=== PATIENT | female | born 1965 | race Caucasian/White ===

== ENCOUNTER 2018-07-31 09:42 | Day surgery (SDC) | payer OTHER ==
--- NOTE | 2018-07-31 06:57 | EKG ---
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
[2018-07-31] MEDS ORDERED: PROPOFOL 200 MG/20 ML VIAL IV ONE (09:50)
[2018-07-31] MEDS ORDERED: LIDOCAINE 1% MPF 2 ML AMPULE ONE (09:51)
[2018-07-31] MEDS ORDERED: FENTANYL CITR 100 MCG/2 ML ONE (09:51)
[2018-07-31] MEDS ORDERED: MIDAZOLAM HCL 2 MG/2 ML INJ ONE (09:51)
[2018-07-31] MEDS ORDERED: Ringers Lactate 1,000 ML IV ONE (10:05)
[2018-07-31] MEDS ORDERED: LIDOCAINE 1% W/EPI 1:100,000 MDV 50 ML VIAL ONE (10:24)
[2018-07-31] MEDS: MEPERIDINE HCL 50 MG/ML AMP ONE ×2 (11:58→12:03)
--- NOTE | 2018-08-01 07:24 | P.BOP ---
Preoperative diagnosis: BCC L check Postoperative diagnosis: same Primary procedure: excision malignant skin lesion, 1.5cm Secondary procedure: shave biopsy R medial cheek Other procedure(s): excisional biopsy R lateral cheek with primary closure Estimated blood loss: <10ml Specimen: L cheek, suture 12 oclock, R medial and lateral cheek Findings: L cheek scar, R medial SK, R lateral defer to permanent Anesthesia: General Complications: None Implants: none Fluids & blood products: see anath. record Transferred to: Recovery Room Condition: Good
--- NOTE | 2018-08-01 23:28 | OP ---
Date of Procedure: 07/31/2018 Surgeon: Allie Campos MD Preoperative Diagnoses: Basal cell carcinoma, left cheek, and lesions of the right cheek of uncertain behavior. Postoperative Diagnoses: Left cheek scar tissue and right medial cheek seborrheic keratosis. Right lateral cheek deferred to permanent. Procedures: Excision of malignant skin lesion of the cheek, maximal diameter 1.5 cm. Shave biopsy, right medial cheek. Excisional biopsy, right lateral cheek with primary closure. Indication For Procedure: Ms. Magda Medley presented to the clinic with concerns for a lesion on the left cheek, which was increasing in size. Clinically, its appearance was consistent with seborrheic keratosis and a shave biopsy was performed under local anesthetic in the clinic. The procedure overall was moderately tolerated due to patient's mental status. The pathology demonstrated seborrheic keratosis with nests of basal cell carcinoma and the options were discussed with the patient and her foster mother. The patient deferred re-excision in the clinic due to concerns for pain and discomfort. Description Of Procedure: The patient was brought to the operating room. She was placed under general anesthesia via LMA. The face was prepped with Betadine and draped in the standard sterile fashion. The areas of concern were injected with 1% lidocaine with epinephrine. The previous biopsy site of the left cheek was noted and a fusiform excision was performed with a 2 mm margin around the prior biopsy site. The full-thickness skin was elevated sharply using a scalpel. A suture was placed at 12 o'clock for orientation and the specimen was sent to Pathology for frozen section analysis. Small vessel in the superior aspect of the wound bed was noted, ligated and tied with silk suture. The Bovie electrocautery was then used to elevate tissue on the nasal aspect of the wound, advancing that skin over the defect and closed in a layered fashion using 4-0 Vicryl and 5-0 plain gut sutures. The total defect was 1.5 x 1 cm. Attention was turned then to the right cheek. A small lesion on the medial aspect of the cheek clinically was suspicious for seborrheic keratosis, but given the unusual findings of prior biopsy, a shave biopsy was performed of this lesion and sent to Pathology for frozen section without specific orientation. Finally, the lesion on the right lateral cheek was examined. It also was most suspicious for seborrheic keratosis. However, there was an isolated area of rather dark pigmentation of approximately 2 mm to 3 mm. Therefore, decision was made to perform an excisional biopsy to allow for best examination including depth of invasion if applicable. A fusiform excision was designed around the lesion and was sent to Pathology for evaluation without specific orientation. The pigmented aspect was noted to be on the inferior aspect of the lesion. After excision, the bleeding from the skin edges was controlled with Bovie electrocautery. The edges were gently undermined with Bovie electrocautery and the site was closed with 2 interrupted 5-0 plain gut sutures. I went to Pathology to review the slides with the pathologist. The left cheek lesion demonstrated scar and healing from prior biopsy with no residual carcinoma. The right medial cheek was consistent with seborrheic keratosis with no abnormality or dysplasia noted on frozen section. The right lateral lesion due to pigmentation was deferred to permanent section only without frozen section and final diagnosis is pending. The face was cleaned and dried and triple antibiotic ointment applied to the wounds. The patient was returned to care of Anesthesia for awakening, extubation in the operating room, which proceeded without difficulty, and the patient was transported to the recovery room in stable condition. ARIANA Voice ID: [id number] Report ID: [id number] LISSETH
== END 2018-07-31 13:00 | disposition home or self-care (01) ==
LOC: OR 09:42
PROVIDERS: ATTEND Otolaryngology
PROC: 0HB1XZZ Excision of Face Skin, External Approach (ICD-10-PCS; 2018-07-31)
PROC: 0HB1XZZ Excision of Face Skin, External Approach (ICD-10-PCS; principal; 2018-07-31 11:00)
DX: L82.1 Other seborrheic keratosis (principal); L90.5 Scar conditions and fibrosis of skin; E78.00 Pure hypercholesterolemia, unspecified; F79 Unspecified intellectual disabilities; Z82.49 Family history of ischemic heart disease and other diseases of the circulatory system
CPT/HCPCS: 11442 ×2; 88305; 88331 ×2; 88332; 93005; J2001; J2175; J2250; J3010

== ENCOUNTER 2020-01-21 07:01 | Day surgery (SDC) | payer OTHER ==
--- NOTE | 2020-01-18 12:12 | EKG ---
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
--- OUTSIDE RECORDS SUMMARY | 2020-01-21 07:04 | XMS REPORT | Summary of Care ---
:1965 Author Organization [facility] Address [address] [place] [address] Care Team Providers Name Role Phone Pietro Wiley MD Primary Care Provider Reason for Referral Radiology Services (Routine) Status Reason Specialty Diagnoses / Referred By Referred To Procedures Contact Contact Closed Diagnostic Diagnoses Encounter for screening mammogram for breast cancer Estefani Irizarry MD Radiology Procedures BI SCREENING MAMMOGRAM BILATERAL [address] [place] [address] [address] [place] [address] Radiology Services (Routine) Status Reason Specialty Diagnoses / Referred By Referred To Procedures Contact Contact Closed Diagnostic Diagnoses Encounter for screening mammogram for breast cancer Estefani Irizarry MD Radiology Procedures BI SCREENING MAMMOGRAM BILATERAL [address] [place] [address] [address] [place] [address] Reason for Visit Radiology Services (Routine) Status Reason Specialty Diagnoses / Referred By Referred To Procedures Contact Contact Closed Diagnostic Diagnoses Encounter for screening mammogram for breast cancer Estefani Irizarry MD Radiology Procedures BI SCREENING MAMMOGRAM BILATERAL [address] [place] [address] [address] [place] [address] Encounter Details Date Type Department Care Team Description 06/28/2019 Hospital Encounter Psych[facility] hospital Estefani Irizarry MD Arrived [facility] [address] [place] [address] [place] [address] [facility] [address] [place], [place] [id number] Allergies No Known Allergiesdocumented as of this encounter (statuses as of 06/29/2019) Medications Medication Sig Dispensed Refills Start Date End Date Status pravastatin (PRAVACHOL) Take 40 mg by 0 Active 40 mg tablet mouth at bedtime. omega-3 fatty Take 1 g by mouth 0 Active acids-vitamin E (FISH daily. OIL) 1,000 mg capsule busPIRone (BUSPAR) 10 Take 10 mg by 0 Active mg tablet mouth at bedtime. ibuprofen 400 mg tablet Take 1 tablet by 21 tablet 0 01/23/2017 Active mouth 3 (three) times daily with meals. Hospital, Clinic, or Other Ordered Dose Route Frequency Start Date End Date Status Facility Administered Medication medroxyPROGESTERone 150 mg IM [id number] 12/31/2018 12/02/2019 Active (DEPO-PROVERA) injection 150 mg documented as of this encounter (statuses as of 06/29/2019) Active Problems Problem Noted Date Well woman exam with routine gynecological exam 09/05/2016 Screening for colon cancer 09/05/2016 Encounter for screening mammogram for breast cancer 09/05/2016 On Depo-Provera for contraception 09/05/2016 Obesity (BMI 30.0-34.9) 09/05/2016 documented as of this encounter (statuses as of 06/29/2019) Social History Tobacco Use Types Packs/Day Years Used Date Never Smoker Smokeless Tobacco: Never Used Alcohol Use Drinks/Week oz/Week Comments No 0 Standard drinks or equivalent 0.0 Sex Assigned at Date Recorded Not on file Job Start Date Occupation Industry Not on file Not on file Not on file Travel History Travel Start Travel End No recent travel history available. documented as of this encounter Last Filed Vital Signs Not on filedocumented in this encounter Plan of Treatment Date Type Specialty Care Team Description 07/06/2019 Nurse Visit Obstetrics & Gynecology Nurse, [facility] 01/31/2020 Office Visit Obstetrics & Gynecology Estefani Irizarry MD [address] [place] [address] [address] [place], [place] [id number] Health Maintenance Due Date Last Done Comments DTaP,Tdap,and Td Vaccines (1 1985 - Tdap) PAP SMEAR 1987 COLONOSCOPY 2016 Zoster Recombinant Vaccine 2016 (SHINGRIX) (1 of 2) MAMMOGRAM 06/02/2019 06/02/2018, 04/15/2017, 04/02/2016 INFLUENZA VACCINE (#1) 2019 PNEUMOCOCCAL 0-64 YEARS Aged Out No longer eligible based COMBINED SERIES on patient's age to complete this topic documented as of this encounter Procedures Procedure Name Priority Date/Time Associated Diagnosis Comments BI SCREENING Routine 06/28/2019 8:40 AM Encounter for Results for this MAMMOGRAM BILATERAL CDT screening mammogram procedure are in for breast cancer the results section. documented in this encounter Results BI SCREENING MAMMOGRAM BILATERAL (06/28/2019 8:40 AM CDT) Specimen Narrative Performed At Examination: PACS BI SCREENING MAMMOGRAM BILATERAL History: Patient is 54 year old and is seen for:Screening. Hormone history includes other. No relevant surgical history has been documented for this patient. No relevant medical history has been documented for this patient. Computer-aided detection (CAD) utilized. Comparisons: 06/02/2018 BI SCREENING MAMMOGRAM BILATERAL, 04/15/2017 SCREENING DIGITAL BREAST OREN, and 04/02/2016 DIGITAL MAMMOGRAM, SCREENING Findings: The breasts are almost entirely fatty. There is no evidence of suspicious masses, calcifications, or other abnormal findings. Impression: No mammographic evidence of malignancy. Recommendation: Annual mammographic follow-up BI-RADS Category: Both 1 - Negative Performing Organization Address City/State/Zipcode Phone Number PACS documented in this encounter Visit Diagnoses Diagnosis Encounter for screening mammogram for breast cancer documented in this encounter Insurance Payer Benefit Plan / Subscriber ID Effective Dates Phone Address Type Group MEDICARE MEDICARE PART xxxxxxxxxxx 2008-Presen [phone] Medicare [address] & [address] t 2 [id number] [place] [address] [facility] MEDICAID OF xxxxxxxxx 2011-Presen [phone] [address] [place] t 0 [id number] [place] [address] documented as of this encounter
--- OUTSIDE RECORDS SUMMARY | 2020-01-21 07:04 | XMS REPORT | Summary of Care ---
:1965 Author Organization [facility] Address [address] [place] [address] Care Team Providers Name Role Phone Pietro Wiley MD Primary Care Provider Encounter Details Date Type Department Care Team Description 06/28/2019 Orders Only [facility] Doctor Unassigned, No [address] [facility] [place] [address] [address] [place] [id number] Allergies No Known Allergiesdocumented as of this encounter (statuses as of 06/28/2019) Medications Medication Sig Dispensed Refills Start Date [...] Facility Administered Medication medroxyPROGESTERone 150 mg IM [id number] 12/31/2018 12/02/2019 Active (DEPO-PROVERA) injection 150 mg documented as of this encounter (statuses as of 06/28/2019) Active Problems Problem Noted Date Well woman exam with routine gynecological exam 09/05/2016 Screening for colon cancer 09/05/2016 Encounter for screening mammogram for breast cancer 09/05/2016 On Depo-Provera for contraception 09/05/2016 Obesity (BMI 30.0-34.9) 09/05/2016 documented as of this encounter (statuses as of 06/28/2019) Social History Tobacco Use Types Packs/Day Years [...] Treatment Date Type Specialty Care Team Description 06/28/2019 Appointment Radiology Estefani Irizarry MD [address] [place] [address] [address] [place] [address] [phone] 07/06/2019 Nurse Visit Obstetrics & Gynecology Nurse, [facility] 01/31/2020 Office Visit Obstetrics & Gynecology Estefani Irizarry MD [address] [place] [address] [address] [place] [address] [phone] Health Maintenance Due Date Last Done Comments DTaP,Tdap,and Td Vaccines (1 1985 - Tdap) PAP SMEAR 1987 COLONOSCOPY 2016 Zoster Recombinant Vaccine 2016 (SHINGRIX) (1 of 2) MAMMOGRAM 06/02/2019 06/02/2018, 04/15/2017, 04/02/2016 INFLUENZA VACCINE (Retired 07/11/2019 version) PNEUMOCOCCAL 0-64 YEARS Aged Out No longer eligible based COMBINED SERIES on patient's age to complete this topic documented as of this encounter Procedures Procedure Name Priority Date/Time Associated Diagnosis Comments ASSIGNMENT OF BENEFITS Routine 06/28/2019 8:08 AM CDT documented in this encounter Results Not on filedocumented in this encounter Insurance Payer Benefit Plan / Subscriber ID Effective Dates Phone Address Type Group MEDICARE MEDICARE PART xxxxxxxxxxx 2008-Presmichelle [phone] [address] Medicare A & B t 2 [id number] [place] [id number] [facility] MEDICAID OF xxxxxxxxx 2011-Presmichelle [phone] [address] Medicaid [place] t 0 [id number] [place] [address] documented as of this encounter
--- OUTSIDE RECORDS SUMMARY | 2020-01-21 07:04 | XMS REPORT ---
:1965 Author [facility] Address [address] [place] [address] Dr. Cook [address] [place] [address] Care Team Providers Name Role Phone Unavailable Unavailable Unavailable Problems This patient has no known problems. Allergies, Adverse Reactions, Alerts This patient has no known allergies or adverse reactions. Medications This patient has no known medications.
--- OUTSIDE RECORDS SUMMARY | 2020-01-21 07:05 | XMS REPORT | Summary of Care ---
:1965 Author Organization [facility] Address [address] [place] [address] Care Team Providers Name Role Phone Pietro Wiley MD Primary Care Provider Encounter Details Date Type Department Care Team Description 07/06/2019 Orders Only [facility] Doctor Unassigned, No 301 [facility] [place] [address] [place] [address] Allergies No Known Allergiesdocumented as of this encounter (statuses as of 07/10/2019) Medications Medication Sig Dispensed Refills Start Date [...] Facility Administered Medication medroxyPROGESTERone 150 mg IM [id number] 12/31/2018 12/02/2019 Active (DEPO-PROVERA) injection 150 mg documented as of this encounter (statuses as of 07/10/2019) Active Problems Problem Noted Date Well woman exam with routine gynecological exam 09/05/2016 Screening for colon cancer 09/05/2016 Encounter for screening mammogram for breast cancer 09/05/2016 On Depo-Provera for contraception 09/05/2016 Obesity (BMI 30.0-34.9) 09/05/2016 documented as of this encounter (statuses as of 07/10/2019) Social History Tobacco Use Types Packs/Day Years [...] Treatment Date Type Specialty Care Team Description 10/04/2019 Nurse Visit Obstetrics & Gynecology Nurse, [facility] 01/31/2020 Office Visit Obstetrics & Gynecology Estefani Irizarry MD [address] [place] [address] [place] [address] [phone] Health Maintenance Due Date Last Done Comments DTaP,Tdap,and Td Vaccines 1985 (1 - Tdap) PAP SMEAR 1987 COLONOSCOPY 2016 Zoster Recombinant Vaccine 2016 (SHINGRIX) (1 of 2) INFLUENZA VACCINE (#1) 2019 MAMMOGRAM 06/28/2020 06/28/2019, 06/02/2018, 04/15/2017, Additional history exists PNEUMOCOCCAL 0-64 YEARS Aged Out No longer eligible COMBINED SERIES based on patient's age to complete this topic documented as of this encounter Procedures Procedure Name Priority Date/Time Associated Diagnosis Comments CONSENT FOR Routine 07/06/2019 12:01 AM CDT DEPO-PROVERA documented in this encounter Results Not on filedocumented in this encounter Insurance Payer Benefit Plan / Subscriber ID Effective Dates Phone Address Type Group MEDICARE MEDICARE PART xxxxxxxxxxx 2008-Presen [phone] [address] Medicare A & B t 2 [id number] [place] [id number] [facility] MEDICAID OF xxxxxxxxx 2011-Presmichelle [phone] [address] Medicaid [place] t 0 [id number] [place] [address] documented as of this encounter
--- OUTSIDE RECORDS SUMMARY | 2020-01-21 07:05 | XMS REPORT | Summary of Care ---
:1965 Author Organization [facility] Address [address] [place] [id number] Care Team Providers Name Role Phone Pietro Wiley MD Primary Care Provider Reason for Visit Reason Comments INJECTION depo provera Encounter Details Date Type Department Care Team Description 01/04/2020 Nurse Visit [facility] Women's IrizarryEstefani MD [address] [place] [address] DRZ[address] [place] [address] Encounter for Healthcare- [place] Nurse, [facility] Depo-Provera [address] [place] [address], contraception (Primary [address] Dx) [place] [address] Allergies No Known Allergiesdocumented as of this encounter (statuses as of 01/04/2020) Medications Medication Sig Dispensed Refills Start Date [...] Facility Administered Medication medroxyPROGESTERone 150 mg IM ONCE 01/04/2020 01/04/2020 Ended (DEPO-PROVERA) injection 150 mg documented as of this encounter (statuses as of 01/04/2020) Active Problems Problem Noted Date Well woman exam with routine gynecological exam 09/05/2016 Screening for colon cancer 09/05/2016 Encounter for screening mammogram for breast cancer 09/05/2016 On Depo-Provera for contraception 09/05/2016 Obesity (BMI 30.0-34.9) 09/05/2016 documented as of this encounter (statuses as of 01/04/2020) Social History Tobacco Use Types Packs/Day Years [...] of this encounter Last Filed Vital Signs Vital Sign Reading Time Taken Comments Blood Pressure 129/82 01/04/2020 10:18 AM STILL CLEANER TUBE Pulse 68 01/04/2020 10:18 AM STILL CLEANER TUBE Temperature 36.8 C (98.3 F) 01/04/2020 10:18 AM STILL CLEANER TUBE Respiratory Rate 20 01/04/2020 10:18 AM STILL CLEANER TUBE Oxygen Saturation - - Inhaled Oxygen Concentration - - Weight 85.7 kg (189 lb) 01/04/2020 10:18 AM STILL CLEANER TUBE Height 167.6 cm (5' 6") 01/04/2020 10:18 AM STILL CLEANER TUBE Body Mass Index 30.51 01/04/2020 10:18 AM STILL CLEANER TUBE documented in this encounter Patient Instructions Patient InstructionsXimena Mcdonough RN - 01/04/2020 10:00 AM STILL CLEANER TUBE Medroxyprogesterone injection [Contraceptive] Brand Names: Depo-Provera, Depo-subQ Provera 104 What is this medicine? MEDROXYPROGESTERONE (me DROX ee proe SERA te tamara) contraceptive injections prevent . They provide effective control for 3 months. Depo-subQ Provera 104 is also used for treating pain related to endometriosis. How should I use this medicine? Depo-Provera Contraceptive injection is given into a muscle. Depo-subQ Provera 104 injection is given under the skin. These injections are given by a health manager medicare. You must not be before getting an injection. The injection is usually given during the first 5 days after the start of a menstrual period or 6 weeks after delivery of a baby. Talk to your sample grader regarding the use of this medicine in children. Special care may be needed. These injections have been used in female children who have started having menstrual periods. What side effects may I notice from receiving this medicine? Side effects that you should report to your doctor or health manager medicare as soon as possible: allergic reactions like skin rash, itching or hives, swelling of the face, lips, or tongue breast tenderness or discharge breathing problems changes in vision depression feeling faint or lightheaded, falls fever pain in the abdomen, chest, groin, or leg problems with balance, talking, walking unusually weak or tired yellowing of the eyes or skin Side effects that usually do not require medical attention (report to your doctor or health manager medicare if they continue or are bothersome): acne fluid retention and swelling headache irregular periods, spotting, or absent periods temporary pain, itching, or skin reaction at site where injected weight gain What may interact with this medicine? Do not take this medicine with any of the following medications: bosentan This medicine may also interact with the following medications: aminoglutethimide antibiotics or medicines for infections, especially rifampin, rifabutin, rifapentine, and griseofulvin aprepitant barbiturate medicines such as phenobarbital or primidone bexarotene carbamazepine medicines for seizures like ethotoin, felbamate, oxcarbazepine, phenytoin, topiramate modafinil Viktor's wort What if I miss a dose? Try not to miss a dose. You must get an injection once every 3 months to maintain control. If you cannot keep an appointment, call and reschedule it. If you wait longer than 13 weeks between Depo-Provera contraceptive injections or longer than 14 weeks between Depo-subQ Provera 104 injections, you could get . Use another method for control if you miss your appointment. You may also need a test before receiving another injection. Where should I keep my medicine? This does not apply. The injection will be given to you by a health manager medicare. What should I tell my health care provider before I take this medicine? They need to know if you have any of these conditions: frequently drink alcohol asthma blood vessel disease or a history of a blood clot in the lungs or legs bone disease such as osteoporosis breast cancer diabetes eating disorder (anorexia nervosa or bulimia) high blood pressure HIV infection or AIDS kidney disease liver disease mental depression migraine seizures (convulsions) stroke tobacco smoker vaginal bleeding an unusual or allergic reaction to medroxyprogesterone, other hormones, medicines, foods, dyes, or preservatives or trying to get breast-feeding What should I watch for while using this medicine? This drug does not protect you against HIV infection (AIDS) or other sexually transmitted diseases. Use of this product may cause you to lose calcium from your bones. Loss of calcium may cause weak bones (osteoporosis). Only use this product for more than 2 years if other forms of control are not right for you. The longer you use this product for control the more likely you will be at risk for weak bones. Ask your health manager medicare how you can keep strong bones. You may have a change in bleeding pattern or irregular periods. Many females stop having periods while taking this drug. If you have received your injections on time, your chance of being is very low. If you think you may be , see your health manager medicare as soon as possible. Tell your health manager medicare if you want to get within the next year. The effect of this medicine may last a long time after you get your last injection. NOTE:This sheet is a summary. It may not cover all possible information. If you have questions aboutthis medicine, talk to your doctor, pharmacist, or health care provider. Copyright 2018 [employer] L CLEANER TUBE documented in this encounter Progress Notes Ximena Mcdonough RN - 01/04/2020 10:00 AM CST54 year old female has been identified by and name. Written consent has been obtained by caregiver and patient to have an injection, as ordered by the provider. NDC (National Drug Code) 0739-1423-67. Patient or state-supplied medications?: no Has ABN (Advanced Beneficiary Notice) been completed? No Previous/Current Encounter Diagnosis: Encounter for depo provera The site was cleaned with an alcohol swab and given intramuscularly (IM) left deltoid. A band aid dressing was then applied to the injection site. The patient tolerated the procedure well . Patient provided with preferred teaching of verbal information on Anaphylaxis. Shows readiness to learn. Verbal/Written instruction teaching provided. Individual is able to read and verbalizes understanding of teaching provided. Signs and Symptoms of Anaphylaxis (severe allergic reaction) are: Tingling, itching or metallic taste in mouth; hives; difficulty breathing; swelling and/ or itching of mouth and/or throat; diarrhea, vomiting, cramps and stomach pain; paleness; loss of consciousness. IF YOU HAVE ANY OF THE SYMPTOMS ABOVE, ACT FAST !!! CALL 911 IMMEDIATELY IF YOU HAVE A PRESCRIBED EPI-PEN PLEASE USE IT NOW. documented in this encounter Plan of Treatment Date Type Specialty Care Team Description 01/31/2020 Office Visit Obstetrics & Gynecology Estefani Irizarry MD [address] [place] [address] [place] [address] [phone] Health Maintenance Due Date Last Done Comments DTaP,Tdap,and Td Vaccines 1977 (1 - Tdap) PAP SMEAR 1987 COLONOSCOPY 2016 Zoster Recombinant Vaccine 2016 (SHINGRIX) (1 of 2) INFLUENZA VACCINE (#1) 2019 Breast Cancer Screening 06/28/2020 06/28/2019, 06/02/2018, (MAMMOGRAM) 04/15/2017, Additional history exists PNEUMOCOCCAL 0-64 YEARS Aged Out No longer eligible COMBINED SERIES based on patient's age to complete this topic documented as of this encounter Results Not on filedocumented in this encounter Visit Diagnoses Diagnosis Encounter for Depo-Provera contraception - Primary Surveillance of other previously prescribed contraceptive method documented in this encounter Administered Medications Medication Order MAR Action Action Date Dose Rate Site medroxyPROGESTERone Given 01/04/2020 10:25 150 mg Left Deltoid-IM (DEPO-PROVERA) injection 150 AM STILL CLEANER TUBE mg 150 mg, Intramuscular, ONCE, 1 dose, 01/04/20 at 1115, Routine documented in this encounter Insurance Payer Benefit Plan / Subscriber ID Effective Dates Phone Address Type Group MEDICARE MEDICARE PART xxxxxxxxxxx 2008-Marco A [phone] Medicare A & B t 2 [id number] [place] [id number] [facility] MEDICAID OF xxxxxxxxx 2011-Marco A [phone] [address] [place] t [id number] [place] [address] documented as of this encounter
--- OUTSIDE RECORDS SUMMARY | 2020-01-21 07:05 | XMS REPORT | Summary of Care ---
:1965 Author Organization [facility] - Health Address [address] [place] [address] Care Team Providers Name Role Phone Pietro Wiley MD Primary Care Provider Encounter Details Date Type Department Care Team Description 01/04/2020 Orders Only [facility] Doctor Unassigned, No [address] [facility] [place] [address] [place] [id number] Allergies No Known Allergiesdocumented as of this encounter (statuses as of 01/10/2020) Medications Medication Sig Dispensed Refills Start Date [...] mouth 3 (three) times daily with meals. documented as of this encounter (statuses as of 01/10/2020) Active Problems Problem Noted Date Well woman exam with routine gynecological exam 09/05/2016 Screening for colon cancer 09/05/2016 Encounter for screening mammogram for breast cancer 09/05/2016 On Depo-Provera for contraception 09/05/2016 Obesity (BMI 30.0-34.9) 09/05/2016 documented as of this encounter (statuses as of 01/10/2020) Social History Tobacco Use Types Packs/Day Years [...] Visit Obstetrics & Gynecology Estefani Irizarry MD [address] [place] [address] [place] [address] [phone] 04/10/2020 Nurse Visit Obstetrics & Gynecology Nurse, [facility] Health Maintenance Due Date Last Done Comments [...] Date/Time Associated Diagnosis Comments CONSENT FOR Routine 01/04/2020 12:01 AM ASSOCIATION EXECUTIVE DEPO-PROVERA documented in this encounter Results Not on filedocumented in this encounter Insurance Payer Benefit Plan / Subscriber ID Effective Dates Phone Address Type Group MEDICARE MEDICARE PART xxxxxxxxxxx 2008-Presen [phone] [address] Medicare A & B t 2 [id number] [place] [id number] [facility] MEDICAID OF xxxxxxxxx 2011-Presmichelle [phone] [address] Medicaid [place] t 0 [id number] [place] [address] documented as of this encounter
--- OUTSIDE RECORDS SUMMARY | 2020-01-21 07:05 | XMS REPORT | Summary of Care ---
:1965 Author Organization [facility] Address [address] [place] [address] Care Team Providers Name Role Phone Pietro Wiley MD Primary Care Provider Reason for Visit Reason Comments DEPO PROVERA Encounter Details Date Type Department Care Team Description 07/06/[address] [facility] Women's Irizarry, Estefani Tavarez MD [address] [place] [address] DRZarina [address] [place] [address] Encounter for Healthcare- [place] Nurse, [facility] Depo-Provera [address] [place] [address], contraception (Primary [address] Dx) [place] [address] Allergies No Known Allergiesdocumented as of this encounter (statuses as of 07/06/2019) Medications Medication Sig Dispensed Refills Start Date [...] Facility Administered Medication medroxyPROGESTERone 150 mg IM [id number] 12/31/2018 12/02/2019 Active (DEPO-PROVERA) injection 150 mg documented as of this encounter (statuses as of 07/06/2019) Active Problems Problem Noted Date Well woman exam with routine gynecological exam 09/05/2016 Screening for colon cancer 09/05/2016 Encounter for screening mammogram for breast cancer 09/05/2016 On Depo-Provera for contraception 09/05/2016 Obesity (BMI 30.0-34.9) 09/05/2016 documented as of this encounter (statuses as of 07/06/2019) Social History Tobacco Use Types Packs/Day Years [...] Sign Reading Time Taken Comments Blood Pressure 129/81 07/06/2019 10:12 AM CDT Pulse 59 07/06/2019 10:12 AM CDT Temperature 36.4 C (97.6 F) 07/06/2019 10:12 AM CDT Respiratory Rate 18 07/06/2019 10:12 AM CDT Oxygen Saturation - - Inhaled Oxygen Concentration - - Weight 84.6 kg (186 lb 9.6 oz) 07/06/2019 10:12 AM CDT Height 167.6 cm (5' 6") 07/06/2019 10:12 AM CDT Body Mass Index 30.12 07/06/2019 10:12 AM CDT documented in this encounter Progress Notes Coco Mac MA - 07/06/2019 10:00 AM CDT54 year old female has been identified by and name. Verbal consent has been obtained by caregiver and patient to have an injection of Depo Provera, as ordered by the provider. Date of last Depo Provera injection: 03/31/2019 Last WWE: 12/31/2018 Encounter Diagnosis: Z30.42 The site was cleaned with an alcohol swab and given intramuscularly (IM) in the left deltoid. A band aid dressing was then applied to the injection site. The patient tolerated the procedure well , norash, swelling or reaction noted. Coco Mac MA 07/06/2019 10:33 AM documented in this encounter Plan of Treatment Date Type Specialty Care Team Description 10/04/2019 Nurse Visit Obstetrics & Gynecology Nurse, [facility]'s [facility] 01/31/2020 Office Visit Obstetrics & Gynecology Estefani Irizarry MD [address] [place] [address] [place] [address] Health Maintenance Due Date Last Done Comments [...] Action Date Dose Rate Site medroxyPROGESTERone Given 07/06/2019 10:28 150 mg Left Deltoid-IM (DEPO-PROVERA) injection 150 AM CDT mg 150 mg, Intramuscular, [id number], 4 doses, First dose on Tonie 12/31/18 at 1000, Last dose on Tonie 09/09/19 at 1000, Routine Given 04/01/2019 10:20 AM CDT 150 mg Right Deltoid-IM Given 12/31/2018 9:40 AM BASKET PATCHER 150 mg Left Deltoid-IM documented in this encounter Insurance Payer Benefit Plan / Subscriber ID Effective Dates Phone Address Type Group MEDICARE MEDICARE PART xxxxxxxxxxx 2008-Marco A [phone] [address] Medicare A & B t 2 [id number] [place] [address] [facility] MEDICAID OF xxxxxxxxx 2011-Marco A [phone] [address] Medicaid [place] t 0 [id number] [place] [address] documented as of this encounter
[2020-01-21] MEDS ORDERED: LIDOCAINE 1% MPF 30 ML VIAL ONE (07:08)
[2020-01-21] MEDS ORDERED: LIDOCAINE 1% W/EPI 1:100,000 MDV 20 ML VIAL ONE (07:08)
[2020-01-21] MEDS ORDERED: Ringers Lactate 1,000 ML IV ONE (07:20)
[2020-01-21] MEDS ORDERED: LANO/MINERAL OIL/PETRO 3.5 GM ONE (08:20)
[2020-01-21] MEDS ORDERED: BSS OPTHALMIC SOL 15 ML BOT OPTH ONE (08:22)
[2020-01-21] MEDS ORDERED: dexAMETHasone 10 MG/ML VIAL ONE (09:01)
[2020-01-21] MEDS ORDERED: propofoL 200 MG/20 ML VIAL IV ONE (09:01)
[2020-01-21] MEDS ORDERED: LIDOCAINE 2% MPF 5 ML VIAL ONE (09:01)
[2020-01-21] MEDS ORDERED: ONDANSETRON 4 MG/2 ML VIAL ONE (09:01)
[2020-01-21] MEDS ORDERED: MIDAZOLAM HCL 2 MG/2 ML INJ ONE (09:01)
[2020-01-21] MEDS ORDERED: FENTANYL CITR 100 MCG/2 ML ONE (09:01)
[2020-01-21] MEDS ORDERED: KETOROLAC 30 MG/ML INJ ONE (09:01)
[2020-01-21] MEDS ORDERED: HYDROMORPHONE HCL 1 MG/ML INJ ONE (09:32)
--- NOTE | 2020-01-21 10:08 | P.BOP ---
Preoperative diagnosis: neoplasm uncertain behavior Postoperative diagnosis: BCC nose Primary procedure: local tissue advancement Secondary procedure: excision malignant skin lesion, face, 1.5cm defect Dairy Science Teacher: NONE,NONE Estimated blood loss: <5ml Specimen: L nasal lesion, 12oclock suture, FS. new 6 oclock margin, FS Findings: negative final margin. Anesthesia: General Complications: None Implants: none Fluids & blood products: crystalloid 900ml Transferred to: Recovery Room Condition: Good
[2020-01-21 10:45] VITALS: BP 147/80; TEMP 98.1; O2SAT 95
--- NOTE | 2020-01-21 14:07 | OP ---
Date of Procedure: 01/21/2020 Surgeon: Allie Campos MD Preoperative Diagnosis: Lesion, nose, of uncertain behavior. Postoperative Diagnosis: Basal cell carcinoma of the nose with negative margin. Indication For Procedure: Ms. Medley is a 54-year-old with a history of prior basal cell carcinoma of the left cheek, who presented with a new, mildly exophytic pearly lesion at the junction of the left nasal sidewall and left cheek, which demonstrated central ulceration without crusting or scabbing. The patient also has a history of borderline intellectual function and anxiety and was unable to tolerate procedure in the office. Description Of Procedure: The patient was brought to the operating room. She was placed under general anesthesia via LMA. Her left nose and medial cheek were injected with 1% lidocaine with epinephrine. A total of 4 mL was used. The face was prepped with Betadine. The left eye was treated with Lacri-Lube and monitored carefully during the procedure. A Bovie electrocautery was used to incise full-thickness through the skin with a 3 mm margin around the lesion. The specimen was marked with a suture at the most superior aspect indicating 12 o'clock and elevated off the underlying soft tissues. Specimen was sent to pathology for frozen section analysis, which confirmed basal cell carcinoma with positive margin at 6 o'clock. A new margin was excised and sent to pathology with the true margin inked. After the specimen was confirmed with negative margin, the tissues were widely undermined. The defect was 1 x 1.5cm including portions of the lateral nasal side wall and medial cheek. The cheek skin was advanced medially over the defect and triangles of skin at the superior aspect is excised to improve closure. The inferior aspect was incised along the nasal crease and a triangle of skin excised in order to place the inferior aspect of the closed in to the alar crease. The flap was secured with vicryl sutures and the skin closed in a running fashion with resorbable sutures. Direct pressure was applied for oozing from the needle sticks. The skin was then cleaned with saline and patted dry. Triple antibiotic ointment was applied. The patient was returned to care of anesthesia for extubation in the OR which was without difficulty. Disposition: home with caregiver, routine wound care Return to Dr Campos's office in 10 days for wound evaluation. LUCRECIA/RAH Voice ID: [id number] Report ID: [id number] LISSETH
== END 2020-01-21 11:20 | disposition home or self-care (01) ==
LOC: OR 07:01
PROVIDERS: ATTEND Otolaryngology
PROC: 0HB1XZZ Excision of Face Skin, External Approach (ICD-10-PCS; principal; 2020-01-21 08:15)
DX: C44.41 Basal cell carcinoma of skin of scalp and neck (principal); Z82.49 Family history of ischemic heart disease and other diseases of the circulatory system
CPT/HCPCS: 93005; 88331; 88332; 88305; 14060; J2704; J2250; J3010; J1100; J1170; J7120; J2405